=== PATIENT | male | born 1955 | race Hispanic/Latino ===

== ENCOUNTER 2022-06-29 14:58 | Inpatient (IN) | payer SELFPAY ==
[2022-06-29 15:41] LABS: Actual Bicarbonate (HCO3v) 22 mEq/L (22-28); Base Excess -2.3 mEq/L (-2.0 to +3.0); Calcium, Ionized (venous) 1.07 mmol/L (1.16-1.32); Chloride (VBG) 102 mmol/L (98-106); Potassium (VBG) 4.55 mmol/L (3.70-5.30); pH (venous) 7.39 (7.32-7.43)
[2022-06-29 15:53] LABS: Hemoglobin 8.1 g/dL (14.0-18.0); Mean Corpuscular HGB CONC 31.9 g/dL (32.0-36.0); Mean Corpuscular Hemoglobin 25.6 pg (27.0-31.0); Mean Corpuscular Volume 80.3 fl (78.0-98.0); RBC Distribution Width 15.5 % (11.5-14.5); Red Blood Cell (RBC) Count 3.16 mill/uL (4.70-6.10); White Blood Cell (WBC) Count 1.3 10x3/uL (4.8-10.8)
[2022-06-29 16:13] LABS: Acetaminophen Less than 10.0 mcg/mL (10.0-30.0); Alcohol Less than 10 mg/dL (Less than 10); CK (CPK) 47 U/L (30-200); Salicylate Less than 8.0 mg/dL (15.0-30.0)
[2022-06-29 16:14] LABS: ALT (SGPT) 38 U/L (8-55); AST (SGOT) 48 U/L (5-34); Albumin 3.5 g/dL (3.4-4.8); Alkaline Phosphatase 439 U/L (40-110); Anion Gap 13 mmol/L (10-20); BUN (Urea Nitrogen) 14 mg/dL (8.4-25.7); Bilirubin, Total 1.8 mg/dL (0.2-1.2); Calc. Creatinine Clearance 0 mL/min (70-130); Calcium 8.1 mg/dL (7.8-10.44); Carbon Dioxide 22 mmol/L (23-31); Chloride 103 mmol/L (98-107); Estimated GFR 95; Globulin 2.5 g/dL (2.4-3.5); Glucose 118 mg/dL (80-115); Potassium 4.7 mmol/L (3.5-5.1); Sodium 133 mmol/L (136-145)
[2022-06-29 16:33] LABS: CKMB 1.2 ng/mL (0-6.6)
[2022-06-29 16:35] LABS: Lymphocytes 36 % (21-51); MDiff Complete? YES; Mean Platelet Volume 11.2 fL (7.4-10.4); Monocytes 8 % (0-10); Neutrophil 56 % (42-75); Platelet Count 59 10x3/uL (130-400); Platelet Morphology Comment Appears Decreased; Reflex for Review?? YES
[2022-06-29 16:51] LABS: Bilirubin Negative (Negative); Blood, Urine Negative (Negative); Clarity Clear (Clear); Glucose, Urine (Dipstick) Normal (Negative); Ketone, Urine Negative (Negative); Leukocyte Negative Leu/uL (Negative); Nitrite Negative (Negative); Protein, Urine (Dipstick) 20 mg/dL (Neg-Trace); Specific Gravity, Urine 1.018 (1.002-1.036); Urobilinogen 12 mg/dL (Less than 2); pH, Urine 6.5 (5.0-9.0)
[2022-06-29 16:55] LABS: INR-International Normal Ratio 1.1; Prothrombin Time 14.6 sec (12.0-14.7)
[2022-06-29 16:56] LABS: PTT 33.3 sec (22.9-36.1)
[2022-06-29 16:58] LABS: Amphetamine Not Detected (NotDetected); Barbiturates Screen Not Detected (NotDetected); Benzodiazepine Screen Not Detected (NotDetected); Cocaine Metabolite Screen Not Detected (NotDetected); Methadone Not Detected (NotDetected); Methamphetamine Not Detected (NotDetected); Opiate Screen Not Detected (NotDetected); Oxycodone Screen Not Detected (NotDetected); Phencyclidine (PCP) Not Detected (NotDetected); THC/Cannabinoid Screen Not Detected (NotDetected); Tricyclic Screen Not Detected (NotDetected)
[2022-06-29] MEDS ORDERED: Lorazepam 2 MG/ML VIAL SLOW IVP PRN (18:07)
[2022-06-29] MEDS ORDERED: Ondansetron PF 4 MG/2 ML Vial IVP PRN (18:07)
[2022-06-29] MEDS ORDERED: Ondansetron ODT 4 MG TAB PO PRN (18:07)
[2022-06-29] MEDS ORDERED: Acetaminophen 325 MG TAB PO PRN (18:07)
[2022-06-29] MEDS ORDERED: Lactated Ringer's 1,000 ML IV SCH (18:30)
[2022-06-29 19:21] LABS: Hemoglobin A1c 5.4 % (4.0-6.0)
[2022-06-29 19:39] LABS: Troponin I 0.043 ng/mL (< 0.028)
[2022-06-29 19:46] LABS: Magnesium 1.9 mg/dL (1.6-2.6)
[2022-06-29 19:52] LABS: Thyroid Stimulating Hormone 42.8855 uIU/mL (0.35-4.94)
[2022-06-29 22:04] LABS: Troponin I 0.054 ng/mL (< 0.028)
[2022-06-29 22:19] LABS: HBCM Index 0.05 S/CO (0-0.79); HBSAg Index 0.32 S/CO (0-0.99); Hep A IgM AB Non-Reactive (NonReactive); Hep A IgM S/CO 0.19 S/CO (0-0.79); Hep B Surf Ag Non-Reactive S/CO (NonReactive); Hep C IgG Ab Non-Reactive (NonReactive); Hep C Index 0.09 S/CO (0-0.79); Hepatitis B Core IgM Abs Non-Reactive (NonReactive)
[2022-06-30 00:24] LABS: SARS-CoV-2 NAA Rapid Test Not Detected (NotDetected)
[2022-06-30 06:10] LABS: #Lymphocytes 0.5 thou/uL (1.20-3.40); #Monocytes 0.1 thou/uL (0.11-0.59); #Neutrophils 0.7 thou/uL (1.40-6.50); %Eosinophils 0.8 % (0.0-10.0); %Neutrophils 54.2 % (42.0-75.0); Hemoglobin 8.3 g/dL (14.0-18.0); Mean Corpuscular HGB CONC 31.8 g/dL (32.0-36.0); Mean Corpuscular Hemoglobin 25.3 pg (27.0-31.0); Mean Corpuscular Volume 79.6 fl (78.0-98.0); Mean Platelet Volume 11.2 fL (7.4-10.4); Platelet Count 55 10x3/uL (130-400); RBC Distribution Width 15.6 % (11.5-14.5); Red Blood Cell (RBC) Count 3.26 mill/uL (4.70-6.10); White Blood Cell (WBC) Count 1.3 10x3/uL (4.8-10.8)
[2022-06-30 06:26] LABS: ALT (SGPT) 37 U/L (8-55); AST (SGOT) 48 U/L (5-34); Albumin 3.4 g/dL (3.4-4.8); Alkaline Phosphatase 454 U/L (40-110); Anion Gap 10 mmol/L (10-20); BUN (Urea Nitrogen) 13 mg/dL (8.4-25.7); Calc. Creatinine Clearance 0 mL/min (70-130); Calcium 8.6 mg/dL (7.8-10.44); Carbon Dioxide 24 mmol/L (23-31); Chloride 102 mmol/L (98-107); Estimated GFR 91; Globulin 2.7 g/dL (2.4-3.5); Glucose 100 mg/dL (80-115); Protein, Total 6.1 g/dL (5.8-8.1); Sodium 132 mmol/L (136-145)
[2022-06-30 07:01] VITALS: BMI 25.0
[2022-06-30] MEDS ORDERED: FLU VACC QS2022-23(65YR UP)/PF 240 MCG/0.7 ML SYRINGE IM ONE (08:00)
[2022-06-30] MEDS ORDERED: Levothyroxine Sodium 50 MCG TAB PO SCH (08:30)
[2022-06-30 09:02] LABS: Reticulocyte Count 1.3 % (0.5-1.5)
[2022-06-30 09:24] LABS: Bilirubin, Total 2.5 mg/dL (0.2-1.2)
[2022-06-30 09:48] LABS: Ferritin 79.97 ng/mL (22-322)
[2022-06-30] MEDS ORDERED: Iron, Sodium Ferric Gluconate 250 MG in Sodium Chloride 0.9% 250 ML 250 ML IVPB SCH (13:00)
[2022-06-30] MEDS ORDERED: Iron Sucrose Complex 200 MG in Sodium Chloride 0.9% 100 ML IVPB SCH (14:00)
[2022-06-30] MEDS ORDERED: Iopamidol-370 76% 500 ML 1 ML ONE (15:47)
[2022-07-01 05:35] LABS: Hemoglobin 7.7 g/dL (14.0-18.0); Mean Corpuscular HGB CONC 31.5 g/dL (32.0-36.0); Mean Corpuscular Volume 79.3 fl (78.0-98.0); Mean Platelet Volume 5.7 fL (7.4-10.4); Platelet Count 55 10x3/uL (130-400); RBC Distribution Width 15.7 % (11.5-14.5); White Blood Cell (WBC) Count 1.6 10x3/uL (4.8-10.8)
[2022-07-01 05:51] LABS: ALT (SGPT) 38 U/L (8-55); AST (SGOT) 45 U/L (5-34); Albumin 3.3 g/dL (3.4-4.8); Alkaline Phosphatase 379 U/L (40-110); Anion Gap 11 mmol/L (10-20); Bilirubin, Total 1.6 mg/dL (0.2-1.2); Calc. Creatinine Clearance 99 mL/min (70-130); Calcium 8.5 mg/dL (7.8-10.44); Carbon Dioxide 26 mmol/L (23-31); Chloride 100 mmol/L (98-107); Estimated GFR 95; Globulin 2.6 g/dL (2.4-3.5); Glucose 97 mg/dL (80-115); Potassium 3.9 mmol/L (3.5-5.1); Protein, Total 5.9 g/dL (5.8-8.1); Sodium 133 mmol/L (136-145)
[2022-07-01] MEDS: Levothyroxine Sodium 50 MCG TAB PO SCH (06:02)
[2022-07-01 08:18] LABS: BUN (Urea Nitrogen) 14 mg/dL (8.4-25.7)
[2022-07-01] MEDS: Ferrous Sulfate 325 MG TAB PO SCH (09:36)
[2022-07-01] MEDS: Folic Acid/Vit B Comp W-C PO SCH (09:36)
[2022-07-02] MEDS: Levothyroxine Sodium 50 MCG TAB PO SCH (05:43)
[2022-07-02] MEDS: Ferrous Sulfate 325 MG TAB PO SCH (09:18)
[2022-07-02] MEDS: Folic Acid/Vit B Comp W-C PO SCH (09:18)
[2022-07-02] MEDS ORDERED: GoLYTELY 4,000 ml Bottle PO SCH (12:30)
[2022-07-03] MEDS: Levothyroxine Sodium 50 MCG TAB PO SCH (06:15)
[2022-07-03 07:27] LABS: Mean Corpuscular HGB CONC 32.6 g/dL (32.0-36.0); Mean Corpuscular Volume 79.7 fl (78.0-98.0); Platelet Count 54 10x3/uL (130-400); Red Blood Cell (RBC) Count 3.07 mill/uL (4.70-6.10)
[2022-07-03 07:35] LABS: Anion Gap 14 mmol/L (10-20); BUN (Urea Nitrogen) 12 mg/dL (8.4-25.7); Calc. Creatinine Clearance 110 mL/min (70-130); Calcium 8.2 mg/dL (7.8-10.44); Carbon Dioxide 23 mmol/L (23-31); Chloride 100 mmol/L (98-107); Estimated GFR 99; Glucose 105 mg/dL (80-115); Potassium 3.6 mmol/L (3.5-5.1); Sodium 133 mmol/L (136-145)
[2022-07-03] MEDS: Ferrous Sulfate 325 MG TAB PO SCH (08:13)
[2022-07-03] MEDS: Folic Acid/Vit B Comp W-C PO SCH (08:13)
[2022-07-03] MEDS ORDERED: PROPOFOL 200 MG/20 ML VIAL ONE (10:22)
[2022-07-03] MEDS ORDERED: Promethazine HCl 25 MG/ML VIAL IM PRN (11:38)
[2022-07-03] MEDS ORDERED: Promethazine HCl 25 MG/ML VIAL IVPB PRN (11:38)
[2022-07-03] MEDS ORDERED: Ondansetron HCl/PF 4 MG/2 ML Vial IVP PRN (11:38)
[2022-07-04] MEDS: Levothyroxine Sodium 50 MCG TAB PO SCH (05:36)
[2022-07-04 06:02] LABS: #Eosinphils 0.1 thou/uL (0.0-0.7); #Lymphocytes 1.1 thou/uL (1.20-3.40); #Monocytes 0.2 thou/uL (0.11-0.59); #Neutrophils 1.2 thou/uL (1.40-6.50); %Basophils 0.8 % (0.0-1.0); %Eosinophils 2.2 % (0.0-10.0); %Lymphocytes 43.5 % (21.0-51.0); %Monocytes 6.9 % (0.0-10.0); %Neutrophils 46.6 % (42.0-75.0); Hemoglobin 8.3 g/dL (14.0-18.0); Mean Corpuscular HGB CONC 31.1 g/dL (32.0-36.0); Mean Corpuscular Hemoglobin 24.9 pg (27.0-31.0); Mean Platelet Volume 11.6 fL (7.4-10.4); Platelet Count 59 10x3/uL (130-400); RBC Distribution Width 16.3 % (11.5-14.5); Red Blood Cell (RBC) Count 3.31 mill/uL (4.70-6.10); White Blood Cell (WBC) Count 2.5 10x3/uL (4.8-10.8)
[2022-07-04 07:48] VITALS: TEMP 98
[2022-07-04] MEDS ORDERED: Iron, Sodium Ferric Gluconate 250 MG in Sodium Chloride 0.9% 250 ML 250 ML IVPB SCH (08:15)
[2022-07-04] MEDS ORDERED: Iron Sucrose Complex 200 MG in Sodium Chloride 0.9% 100 ML IVPB SCH (08:15)
[2022-07-04] MEDS: Ferrous Sulfate 325 MG TAB PO SCH (08:54)
[2022-07-04] MEDS: Folic Acid/Vit B Comp W-C PO SCH (08:54)
[2022-07-04] MEDS ORDERED: Sodium Bicarbonate 2.5 MEQ/5 ML VIAL ONE (10:32)
[2022-07-04] MEDS ORDERED: FENTANYL 50 MCG/ML 1 ML VIAL ONE (10:32)
[2022-07-04] MEDS ORDERED: Sodium Chloride 0.9% 1,000 ML IV SCH (12:15)
[2022-07-04 13:09] VITALS: BP 122/63
[2022-07-04 14:38] LABS: Kappa Lambda Light Chain Ratio 3.3 (0.26-1.65); Kappa Light Chains 80.2 mg/L (3.3-19.4); Lambda Light Chain 24.3 mg/L (5.7-26.3)
[2022-07-05 14:13] LABS: Albumin 2.9 g/dL (2.9-4.4); Alpha 1 0.4 g/dL (0.0-0.4); Alpha 2 0.6 g/dL (0.4-1.0); Beta 0.9 g/dL (0.7-1.3); Gamma 1.1 g/dL (0.4-1.8); Globulin, Total 2.9 g/dL (2.2-3.9); M-Spike Not Observed g/dL (Not Observed)
[2022-07-06 14:13] LABS: Viscosity, Serum 1.5 rel.saline (1.4-2.1)
== END 2022-07-04 14:55 | disposition home or self-care (01) | DRG 808 ==
LOC: ERS 14:58 → NEURO 17:46 → OBSVTOIN 06-30 11:28
PROVIDERS: ADMIT Internal Medicine; ATTEND Internal Medicine
PROC: 06L38CZ Occlusion of Esophageal Vein with Extraluminal Device, Via Natural or Artificial Opening Endoscopic (ICD-10-PCS; principal; 2022-07-03)
PROC: 0DBH8ZZ Excision of Cecum, Via Natural or Artificial Opening Endoscopic (ICD-10-PCS; 2022-07-03)
PROC: 0DBL8ZZ Excision of Transverse Colon, Via Natural or Artificial Opening Endoscopic (ICD-10-PCS; 2022-07-03)
PROC: 0DBN8ZZ Excision of Sigmoid Colon, Via Natural or Artificial Opening Endoscopic (ICD-10-PCS; 2022-07-03)
PROC: 0DBP8ZZ Excision of Rectum, Via Natural or Artificial Opening Endoscopic (ICD-10-PCS; 2022-07-03)
PROC: 0DBM8ZZ Excision of Descending Colon, Via Natural or Artificial Opening Endoscopic (ICD-10-PCS; 2022-07-03)
PROC: 07DR3ZX Extraction of Iliac Bone Marrow, Percutaneous Approach, Diagnostic (ICD-10-PCS; 2022-07-04)
DX: D61.818 Other pancytopenia (principal); I21.A1 Myocardial infarction type 2; E87.1 Hypo-osmolality and hyponatremia; K76.6 Portal hypertension; I85.00 Esophageal varices without bleeding; C85.90 Non-Hodgkin lymphoma, unspecified, unspecified site; D73.5 Infarction of spleen; Z20.822 Contact with and (suspected) exposure to COVID-19; E03.9 Hypothyroidism, unspecified; D50.9 Iron deficiency anemia, unspecified; K80.20 Calculus of gallbladder without cholecystitis without obstruction; R16.1 Splenomegaly, not elsewhere classified; K31.89 Other diseases of stomach and duodenum; K57.30 Diverticulosis of large intestine without perforation or abscess without bleeding; K63.5 Polyp of colon
CPT/HCPCS: 36415; 38222; 70450; 70551; 71045; 74177; 76700; 77012; 80048; 80053; 80074; 80306; 80307; 81003; 82105; 82247; 82550; 82553; 82607; 82728; 82805; 83036; 83540; 83550; 83615; 83735; 83883; 84155; 84165; 84439; 84443; 84484; 85025; 85027; 85046; 85060; 85097; 85610; 85730; 85810; 86850; 86870; 86880; 86900; 86901; 86922; 88184; 88237; 88305; 88311; 88313; 90471; 90662; 93005; 93306; 95712; 95819; 95957; G0008; G0378; J1756; J2704; J3010; J3490; J7120; Q9967; U0002

== ENCOUNTER 2022-09-01 08:27 | Day surgery (SDC) | payer SELFPAY ==
[2022-08-31 13:29] VITALS: BMI 19.8
[2022-09-01 10:14] LABS: #Lymphocytes 0.4 thou/uL (1.20-3.40); #Monocytes 0.1 thou/uL (0.11-0.59); #Neutrophils 1.3 thou/uL (1.40-6.50); %Lymphocytes 20.1 % (21.0-51.0); %Neutrophils 72.9 % (42.0-75.0); Hemoglobin 8.3 g/dL (14.0-18.0); Mean Corpuscular HGB CONC 31.7 g/dL (32.0-36.0); Mean Corpuscular Hemoglobin 27.4 pg (27.0-31.0); Mean Corpuscular Volume 86.3 fl (78.0-98.0); Mean Platelet Volume 9.6 fL (7.4-10.4); Platelet Count 75 10x3/uL (130-400); Red Blood Cell (RBC) Count 3.02 mill/uL (4.70-6.10); White Blood Cell (WBC) Count 1.8 10x3/uL (4.8-10.8)
[2022-09-01 10:36] LABS: Reflex for Review?? NO
[2022-09-01 10:37] LABS: MDiff Complete? YES; Platelet Morphology Comment Appears Decreased; Polychromasia SLIGHT = 2-3 cells (100X) (0-2/hpf)
[2022-09-01] MEDS ORDERED: PROPOFOL 200 MG/20 ML VIAL ONE (11:36)
[2022-09-01] MEDS ORDERED: Lidocaine 1% PF 5 ML VIAL ONE (11:36)
== END 2022-09-01 12:45 | disposition home or self-care (01) ==
LOC: SDC 08:27
PROVIDERS: ATTEND Internal Medicine
PROC: 06L38CZ Occlusion of Esophageal Vein with Extraluminal Device, Via Natural or Artificial Opening Endoscopic (ICD-10-PCS; principal; 2022-09-01)
DX: K76.6 Portal hypertension (principal); I85.10 Secondary esophageal varices without bleeding; K31.89 Other diseases of stomach and duodenum; C85.10 Unspecified B-cell lymphoma, unspecified site; E07.9 Disorder of thyroid, unspecified; R16.2 Hepatomegaly with splenomegaly, not elsewhere classified; D61.818 Other pancytopenia; E61.1 Iron deficiency; Z86.010 Personal history of colon polyps; Z79.890 Hormone replacement therapy; Z79.899 Other long term (current) drug therapy
CPT/HCPCS: 85025; J2704